=== PATIENT | male | born 1990 | race Caucasian/White ===

== ENCOUNTER → 2016-12-26 | Outpatient (CLI) | payer OTHER ==
[~2016-12-26] MED LIST: ONDA8TAB9 PO; TRM50T PO
--- NOTE | 2016-12-26 16:26 | Diagnostic Imaging Report ---
EXAMINATION: Three views of the right ankle. INDICATION: Right ankle pain. Lateral ankle bruising. FINDINGS: There is no radiographic evidence of malalignment of the ankle. There is no cortical disruption of the distal tibia or fibula. The talar dome is normal in morphology. There is no abnormal widening of the mortise demonstrated. The visualized bones of the foot are unremarkable. There does appear to be some diffuse ankle soft tissue swelling which appears both about the medial and lateral aspect of the ankle. IMPRESSION: Soft tissue swelling without evidence of right ankle fracture or malalignment. Dictated by: Dictated on workstation # [id number]
== END ==
LOC: RAD 16:08
PROVIDERS: ATTEND Nurse Practitioner Family
DX: M79.9 Soft tissue disorder, unspecified (principal)
CPT/HCPCS: 73610

== ENCOUNTER 2018-11-05 02:44 | Emergency (ER) | payer BC, OTHER ==
[~2018-11-05] VITALS: Ht 177.8 cm; Wt 104.3 kg
--- OUTSIDE RECORDS SUMMARY | 2018-11-05 02:51 | XMS REPORT | Continuity of Care Document ---
Author Organization Unknown Address Unknown Allergies Active Description Code Type Severity Reaction Onset Reported/Identified Relationship to Patient Clinical Status Yes meperidine [id number] Drug Allergy Mild N/A 09/23/2009 Medications There is no data. Problems Date Dx Coded Attending Type Code Diagnosis Diagnosed By 06/05/2016 BERNY BE, ZEFERINO Damon Ot 216.3 BENIGN STIVEN SKIN FACE NEC 06/05/2016 BERNY BE, ZEFERINO Damon Ot 757.8 OTH INTEGUMENT ANOMALIES 06/05/2016 ZEFERINO ARRIETA MD Ot V72.84 EXAM PRE-OPERATIVE NOS 06/05/2016 BERNY BE, ZEFERINO Damon Ot V74.8 SCREEN-BACTERIAL DIS NEC 06/05/2016 BARBARA FELICIANO APRN Ot K52.9 NONINFECTIVE GASTROENTERITIS AND COLITIS 06/05/2016 BARBARA FELICIANO DIRECTOR [facility] Ot R11.2 NAUSEA WITH VOMITING, UNSPECIFIED 06/07/2016 BARBARA FELICIANO DIRECTOR [facility] Ot K52.9 NONINFECTIVE GASTROENTERITIS AND COLITIS 06/07/2016 BARBARA FELICIANO DIRECTOR [facility] Ot R11.2 NAUSEA WITH VOMITING, UNSPECIFIED 12/27/2016 BARBARA FELICIANO DIRECTOR [facility] Ot M79.9 SOFT TISSUE DISORDER, UNSPECIFIED 01/06/2017 BARBARA FELICIANO DIRECTOR [facility] Ot M79.9 SOFT TISSUE DISORDER, UNSPECIFIED 01/06/2017 BARBARA FELICIANO DIRECTOR [facility] Ot M79.9 SOFT TISSUE DISORDER, UNSPECIFIED 01/26/2017 BARBARA FELICIANO DIRECTOR [facility] Ot M79.9 SOFT TISSUE DISORDER, UNSPECIFIED 11/14/2017 BERNY BE, ZEFERINO Damon Ot 216.3 BENIGN STIVEN SKIN FACE NEC 11/14/2017 BERNY BE, ZEFERINO Damon Ot 757.8 OTH INTEGUMENT ANOMALIES 11/14/2017 BERNY BE, ZEFERINO Damon Ot V72.84 EXAM PRE-OPERATIVE NOS 11/14/2017 BERNY BE, ZEFERINO Damon Ot V74.8 SCREEN-BACTERIAL DIS NEC 12/12/2017 ZEFERINO ARRIETA MD Ot 216.3 BENIGN STIVEN SKIN FACE NEC 12/12/2017 ZEFERINO ARRIETA MD Ot 757.8 OTH INTEGUMENT ANOMALIES 12/12/2017 ZEFERINO ARRIETA MD Ot V72.84 EXAM PRE-OPERATIVE NOS 12/12/2017 ZEFERINO ARRIETA MD, Ot V74.8 SCREEN-BACTERIAL DIS NEC Procedures There is no data. Results Test Result Range Complete blood count (CBC) with automated white blood cell (WBC) differential - 06/05/16 14:53 Blood leukocytes automated count (number/volume) 14.3 10*3/uL 4.3-11.0 Blood erythrocytes automated count (number/volume) 5.56 10*6/uL 4.35-5.85 Venous blood hemoglobin measurement (mass/volume) 16.8 g/dL 13.3-17.7 Blood hematocrit (volume fraction) 47 % 40-54 Automated erythrocyte mean corpuscular volume 84 [foz_us] 80-99 Automated erythrocyte mean corpuscular hemoglobin (mass per erythrocyte) 30 pg 25-34 Automated erythrocyte mean corpuscular hemoglobin concentration measurement ( mass/volume) 36 g/dL 32-36 Automated erythrocyte distribution width ratio 12.9 % 10.0-14.5 Automated blood platelet count (count/volume) 266 10*3/uL 130-400 Automated blood platelet mean volume measurement 9.2 [foz_us] 7.4-10.4 Automated blood neutrophils/100 leukocytes 89 % 42-75 Automated blood lymphocytes/100 leukocytes 3 % 12-44 Blood monocytes/100 leukocytes 7 % 0-12 Automated blood eosinophils/100 leukocytes 1 % 0-10 Automated blood basophils/100 leukocytes 0 % 0-10 Blood neutrophils automated count (number/volume) 12.7 10*3 1.8-7.8 Blood lymphocytes automated count (number/volume) 0.4 10*3 1.0-4.0 Blood monocytes automated count (number/volume) 1.0 10*3 0.0-1.0 Automated eosinophil count 0.1 10*3/uL 0.0-0.3 Automated blood basophil count (count/volume) 0.0 10*3/uL 0.0-0.1 Comprehensive metabolic panel - 06/05/16 14:53 Serum or plasma sodium measurement (moles/volume) 139 mmol/L 135-145 Serum or plasma potassium measurement (moles/volume) 4.2 mmol/L 3.6-5.0 Serum or plasma chloride measurement (moles/volume) 108 mmol/L 98-107 Carbon dioxide 18 mmol/L 21-32 Serum or plasma anion gap determination (moles/volume) 13 mmol/L 5-14 Serum or plasma urea nitrogen measurement (mass/volume) 19 mg/dL 7-18 Serum or plasma creatinine measurement (mass/volume) 1.11 mg/dL 0.60-1.30 Serum or plasma urea nitrogen/creatinine mass ratio 17 NRG Serum or plasma creatinine measurement with calculation of estimated glomerular filtration rate > NRG Serum or plasma glucose measurement (mass/volume) 104 mg/dL 70-105 Serum or plasma calcium measurement (mass/volume) 9.4 mg/dL 8.5-10.1 Serum or plasma total bilirubin measurement (mass/volume) 0.7 mg/dL 0.1-1.0 Serum or plasma alkaline phosphatase measurement (enzymatic activity/volume) 74 U/L 40-136 Serum or plasma aspartate aminotransferase measurement (enzymatic activity/ volume) 34 U/L 5-34 Serum or plasma alanine aminotransferase measurement (enzymatic activity/volume ) 61 U/L 0-55 Serum or plasma protein measurement (mass/volume) 7.6 g/dL 6.4-8.2 Serum or plasma albumin measurement (mass/volume) 4.9 g/dL 3.2-4.5 Serum or plasma amylase measurement (enzymatic activity/volume) - 06/05/16 14: 53 Serum or plasma amylase measurement (enzymatic activity/volume) 72 U /L 25-125 Lipase - 06/05/16 14:53 Lipase 20 U/L 8-78 Blood manual differential performed detection - 06/05/16 14:53 Blood monocytes/100 leukocytes 5 % NRG Manual blood segmented neutrophils/100 leukocytes 88 % NRG Manual blood lymphocytes/100 leukocytes 6 % NRG Manual eosinophils/100 leukocytes in nose 1 % NRG Blood erythrocyte morphology finding identification NORMAL NRG Complete urinalysis with reflex to culture - 06/05/16 14:55 Urine color determination YELLOW NRG Urine clarity determination CLEAR NRG Urine pH measurement by test strip 6 5-9 Specific gravity of urine by test strip 1.015 1.016- 1.022 Urine protein assay by test strip, semi-quantitative NEGATIVE NEGATIVE Urine glucose detection by automated test strip NEGATIVE NEGATIVE Erythrocytes detection in urine sediment by light microscopy 1+ NEGATIVE Urine ketones detection by automated test strip NEGATIVE NEGATIVE Urine nitrite detection by test strip NEGATIVE NEGATIVE Urine total bilirubin detection by test strip NEGATIVE NEGATIVE Urine urobilinogen measurement by automated test strip (mass/volume) NORMAL NORMAL Urine leukocyte esterase detection by dipstick NEGATIVE NEGATIVE Automated urine sediment erythrocyte count by microscopy (number/high power field) NONE NRG Automated urine sediment leukocyte count by microscopy (number/high power field ) NONE NRG Bacteria detection in urine sediment by light microscopy NEGATIVE NRG Squamous epithelial cells detection in urine sediment by light microscopy RARE NRG Crystals detection in urine sediment by light microscopy NONE NRG Casts detection in urine sediment by light microscopy NONE NRG Mucus detection in urine sediment by light microscopy NEGATIVE NRG Complete urinalysis with reflex to culture NO NRG Encounters ACCT No. Visit Date/Time Discharge Status Pt. Type Provider Facility Loc./Unit Complaint [id number] 12/26/2016 16:08:00 12/26/2016 23:59:59 CLS Outpatient BARBARA FELICIANO APRN [facility] RAD RT ANKLE PAIN [id number] 06/05/2016 14:46:00 06/05/2016 16:06:00 DIS Emergency BARBARA FELICIANO APRN [facility] ER VOMITING/KIDNEY PAIN [id number] 08/31/2013 07:59:00 08/31/2013 23:59:59 CLS Outpatient ZEFERINO ARRIETA MD [facility] SDC SKIN LESIONS [id number] 08/29/2013 08:51:00 08/29/2013 23:59:59 CLS Outpatient ZEFERINO ARRIETA MD [facility] PREOP SKIN LESIONS [id number] 11/05/2018 02:47:00 ACT Emergency FLORENCIA GRAHAM MD [facility] ER DOG BITE ON THE MOUTH
[2018-11-05] MEDS ORDERED: AUGMENTIN 875 MG TAB (AMOXICILLIN/CLAVULANATE) PO STA (02:55)
[2018-11-05] MEDS ORDERED: LIDOCAINE 1% INJ 20 ML 20 ML VIAL INJ ONE (03:00)
--- NOTE | 2018-11-05 03:01 | ED Integumentary General ---
General Chief Complaint: Bite-Animal/Human/Insect Stated Complaint: DOG BITE ON THE MOUTH Source: patient Exam Limitations: no limitations History of Present Illness Date Seen by Provider: November 05, 2018 Time Seen by Provider: 02:49 Initial Comments Here with report of dog bite to the upper lip with laceration. Apparently it was his friend's dog. Dog is reportedly vaccinated. Occurred approximately one hour ago. Approximately 1 cm laceration to left upper lip just left of midline and appears across vermilion border. Also small puncture ran at the corner of the mouth on the right. Denies other injuries. States tetanus is less than 5 years. Patient admits to drinking alcohol tonight. Timing/Duration: this morning Severity: moderate Location: face Possible Cause: other (dog bite) Associated Symptoms: other (laceration and puncture lesion) Allergies and Home Medications Allergies Coded Allergies: meperidine (Unverified Allergy, Mild, 09/23/09) Home Medications Amoxicillin/Potassium Clav 1 Each Tablet, 1 EACH PO BID Prescribed by: FLORENCIA GRAHAM on 11/05/18 0314 Ondansetron 8 Mg Tab.rapdis, 8 MG PO Q6H PRN for NAUSEA/VOMITING Prescribed by: BARBARA FELICIANO on 06/05/16 1539 Tramadol Hcl 50 Mg Tab, 100 MG PO BID PRN for PAIN Prescribed by: ARGENTINA BACH on 08/31/13 1101 Patient Home Medication List Home Medication List Reviewed: Yes Review of Systems Review of Systems Constitutional: see HPI; No chills, No fever EENTM: other (laceration of lip) Respiratory: no symptoms reported Cardiovascular: no symptoms reported Skin: see HPI, lesions; No rash Past Pddbgjf-Clbmdx-Vvxbnv Hx Past Med/Social Hx: Reviewed Nursing Past Med/Soc Hx Patient Social History Alcohol Use: Occasionally Uses Recreational Drug Use: No Smoking Status: Never a Smoker Recent Hopitalizations: No Past Medical History Surgeries: Yes Orthopedic Respiratory: No Cardiac: No Neurological: No Reproductive Disorders: No Sexually Transmitted Disease: No Gastrointestinal: No Musculoskeletal: No Endocrine: No Cancer: No Psychosocial: No Family Medical History Reviewed and Corrections made Physical Exam Vital Signs Vital Signs - First Documented 11/05/18 02:48 Temp 96.8 Pulse 105 Resp 18 B/P (MAP) 126/69 (88) Pulse Ox 96 O2 Delivery Room Air Capillary Refill : General Appearance: WD/WN, no apparent distress HEENT: pharynx normal, other (upper lip laceration left of midline) Neck: full range of motion, supple Cardiovascular: no murmur, tachycardia Respiratory: lungs clear, normal breath sounds Skin: warm/dry Skin Problem Location: face (upper lip with 1 cm laceration. Puncture wound to the right side of the face near the corner of the mouth.) Procedures/Interventions Wound Location: Lower Extremities Other Wound Location Upper lip left of midline, V-shaped through vermilion border Wound Length (cm): 1.5 Wound's Depth, Shape: flap Wound Explored: contaminated Irrigated w/ Saline (ccs): 25 Betadine Prep?: Yes Anesthesia: 1% Lidocaine Volume Anesthetic (ccs): 3 Wound Debrided: minimal Suture: Ethlion Suture Size: 5-0 Number of Sutures: 4 Layer Closure?: 1 Number Deep Layer Sutures: 0 Progress Cleaned with copious saline and Betasept. Anesthetized. Closed with good repair. [place] border lined up well. Tolerated procedure well medication. Covered with antibiotic ointment. Progress/Results/Core Measures Results/Orders My Orders Orders - FLORENCIA GRAHAM MD Amoxicillin/Clavulanate Tablet (Augmenti (11/05/18 02:55) Lidocaine 1% Inj 20 Ml (Xylocaine 1% Inj (11/05/18 03:00) Vital Signs/I&O 11/05/18 02:48 Temp 96.8 Pulse 105 Resp 18 B/P (MAP) 126/69 (88) Pulse Ox 96 O2 Delivery Room Air Progress Progress Note : Progress Note Seen and evaluated. Wound anesthetized with 1% lidocaine. Cleaned with copious saline and then sent. Close was sutured. Covered with antibiotic ointment. Discharged home with return precautions. Patient verbalize understanding instructions and agreement with plan. Departure Impression Primary Impression: Dog bite Qualified Codes: W54.0XXA - Bitten by dog, initial encounter Additional Impression: Laceration of vermilion border of upper lip Qualified Codes: S01.511A - Laceration without foreign body of lip, initial encounter Disposition: 01 HOME, SELF-CARE Condition: Improved Departure-Patient Inst. Decision time for Depature: 03:38 Referrals: CHE POON DO (PCP/Family) Primary Care Physician Patient Instructions: Animal Bites (DC), Laceration Repair With Stitches (DC) Add. Discharge Instructions: All discharge instructions reviewed with patient and/or family. Voiced understanding. Sutures out in 5 days. You may use antibiotic ointment over wound twice daily. Take medications as directed. Follow-up with your Dr. in a few days for recheck. Return for worse pain, fever, vomiting, weakness, breathing problems or other concerns as needed. Scripts Amoxicillin/Potassium Clav (Augmentin 875-125 Tablet) 1 Each Tablet 1 EACH PO BID, #13 TAB 0 Refills Prov: FLORENCIA GRAHAM MD 11/05/18 Images Head/Face 1 - Laceration 2 - Laceration 3 - Puncture Wound FLORENCIA GRAHAM MD November 05, 2018 03:01
[2018-11-05] MEDS ORDERED: AMOX-358 PO (03:14)
[2018-11-05 03:40] VITALS: BP 126/69
== END 2018-11-05 03:40 | disposition home or self-care (01) ==
LOC: EDUNIT# 02:44 → ER 02:47
DX: S01.511A Laceration without foreign body of lip, initial encounter (principal); F10.10 Alcohol abuse, uncomplicated; Z88.8 Allergy status to other drugs, medicaments and biological substances; Z98.890 Other specified postprocedural states; W54.0XXA Bitten by dog, initial encounter
CPT/HCPCS: 12011